=== PATIENT | male | born 1975 | race Caucasian/White ===

== ENCOUNTER 2017-02-23 15:07 | Emergency (ER) | payer MEDICAID ==
[2017-02-23 15:30] VITALS: BP 123/78; PULSE 95; RESP 18; TEMP 212.9; O2SAT 96
[2017-02-23] MEDS ORDERED: IBUPROFEN 800 MG TAB PO ONE (15:32)
--- NOTE | 2017-02-23 15:32 | UCPHY ---
H & P Patient Type: New Chief Complaint Nursing Narrative: c/o SOB/Cough/Congestion since early this am HPI/ROS: HPI CHIEF COMPLAINT: Cough, congestion HISTORY OF PRESENT ILLNESS: This patient very pleasant 41-year-old male significant past medical history for depression anxiety, presents to the urgent care with 1-2 days of cough, congestion, whitish sputum. Low-grade fever. States that he soaked through the sheets this morning. Denies chest pain, denies pleuritic pain, denies hemoptysis, denies abdominal pain or diarrhea. Past Medical History: Anxiety, depression Past Surgical History: No recent surgical history Social History: denies daily use of drugs alcohol tobacco products Family History: Noncontributory ROS REVIEW OF SYSTEMS: A comprehensive 10 point review of systems is otherwise negative aside from elements mentioned in the history of present illness. Exam Constitutional appears well, fever noted 100.5 at triage, triage nursing summary reviewed, vital signs reviewed, awake/alert. Eyes normal conjunctivae and sclera, EOMI, PERRLA. HENT normal inspection, atraumatic, moist mucus membranes, no epistaxis, neck supple/ no meningismus, no raccoon eyes. Respiratory bronchitic sounding breath sounds, no respiratory distress, no wheezing. Cardiovascular rate normal, regular rhythm, no murmur, no edema, distal pulses normal. Gastrointestinal soft, non-tender, no rebound, no guarding, normal bowel sounds, no distension, no pulsatile mass. Genitourinary no CVA tenderness. Musculoskeletal no midline vertebral tenderness, full range of motion, no calf swelling, no tenderness of extremities, no meningismus, good pulses, neurovascularly intact. Skin pink, warm, & dry, no rash, skin atraumatic. Neurologic awake, alert and oriented x 3, AAOx3, moves all 4 extremities equally, motor intact, sensory intact, CN II-XII intact, normal cerebellar, normal vision, normal speech. Psychiatric normal mood/affect. Heme/Lymph/Immune no lymphadenopathy. Differential Diagnosis: Includes but is not limited to in a particular order, viral syndrome, upper respiratory tract infection, pneumonia, viral pneumonia Medical Decision Making: Plan for this patient DuoNeb breathing treatment, two view chest x-ray, rule out Focal Pna. Re-evaluation: After further discussion with the patient has declined x-ray imaging. Would like prescriptions for azithromycin, prednisone, albuterol inhaler, albuterol neb. Cough medicine. I did explain without an x-ray cannot focally visualize that he does not bacterial pneumonia I do recommend we image him however he states that he gets worse he will come back. Patient also refused nebulizer treatment. Source: Patient - Personal History Current Tetanus Diphtheria and Acellular Pertussis (TDAP): Yes - Medical/Surgical History Hx Asthma: Yes Other PMH: denies - Family History Significant Family History: No pertinent family hx - Social History Smoking Status: Light smoker Constitutional: Initial Vital Signs Temperature (C) 100.5 C H 02/23/17 15:27 Heart Rate 95 02/23/17 15:27 Respiratory Rate 18 02/23/17 15:27 Blood Pressure 123/78 H 02/23/17 15:27 O2 Sat (%) 96 02/23/17 15:27 O2 Delivery Mode Room Air Allergies/Adverse Reactions: No Known Allergies Allergy (Unverified 02/23/17 15:27) Home Medications: Medication Instructions Recorded AZITHROMYCIN [Z-PACK] 250 mg PO DAILY #6 tab 02/23/17 Albuterol Sulfate [ALBUTEROL 0.63 mg IH BID #20 vial.neb 02/23/17 SULFATE] Albuterol [Proventil Inhaler HFA 1 - 2 puffs IH Q4H #1 mdi 02/23/17 (*)] Guaifenesin [Guaifenesin ER] 600 mg PO BID #14 tab.er.12h 02/23/17 Hydrocodone/APAP 5/325 [Havana 1 - 2 tab PO Q4H PRN #10 tab 02/23/17 5/325] Ibuprofen [Motrin (*)] 800 mg PO Q6-8PRN #7 tab 02/23/17 Prozac 10 MG (*) 02/23/17 Valium 02/23/17 Wellbutrin Sr 02/23/17 predniSONE 60 mg PO DAILY #15 tab 02/23/17 Departure - Departure Disposition: Home, Routine, Self-Care Clinical Impression: Bronchitis Condition: Good Instructions: Acute Bronchitis (ED) Additional Instructions: 1. Drink lots of fluids stay well-hydrated. 2. Return to the urgent care if you have worsening symptoms questions or concerns. 3. Take your medications as prescribed. Prescriptions: Albuterol [Proventil Inhaler HFA (*)] 1 - 2 puffs IH Q4H #1 mdi Albuterol Sulfate [ALBUTEROL SULFATE] 0.63 mg IH BID #20 vial.neb AZITHROMYCIN [Z-PACK] 250 mg PO DAILY #6 tab Guaifenesin [Guaifenesin ER] 600 mg PO BID #14 tab.er.12h Hydrocodone/APAP 5/325 [Havana 5/325] 1 - 2 tab PO Q4H PRN #10 tab PRN Reason: Pain, Moderate Ibuprofen [Motrin (*)] 800 mg PO Q6-8PRN #7 tab predniSONE 60 mg PO DAILY #15 tab - PQRS PQRS Measurement: n/a
[2017-02-23] MEDS ORDERED: IPRATROPIUM/ALBUTEROL 3 ML DEYVIAL IH ONE (15:35)
[2017-02-23] MEDS ORDERED: IBUPROFEN 200 MG TAB PO ONE (15:39)
[2017-02-23] MEDS ORDERED: IBUPROFEN 600 MG TAB PO ONE (15:39)
== END 2017-02-23 16:04 | disposition home or self-care (01) ==
LOC: CED 15:07
DX: J20.9 Acute bronchitis, unspecified (principal); F41.9 Anxiety disorder, unspecified; F32.9 Major depressive disorder, single episode, unspecified; Z72.0 Tobacco use
CPT/HCPCS: 99204-PO; G0463-PO

== ENCOUNTER 2018-09-13 14:08 | Emergency (ER) | payer OTHER, MEDICAID ==
[2018-09-13] MEDS ORDERED: chlordiazePOXIDE 25 MG CAP PO ONE (15:25)
[2018-09-13] MEDS ORDERED: CHLORDIAZEPOXIDE 25MG PREPK#6 BTL TAKEHOME ONE (15:25)
--- NOTE | 2018-09-13 15:29 | EDPHY ---
H & P Stated Complaint: ETOH withdrawl Time Seen by Provider: 09/13/18 14:55 HPI/ROS: CHIEF COMPLAINT: Alcohol withdrawal HISTORY OF PRESENT ILLNESS: The patient is a 42-year-old man who is concerned that he is going to withdrawal from alcohol. He states that he has done so in the past and suffered seizures. His last drink of alcohol was about 2 hr ago. His mom brought him here. He also reports history of Valium abuse. His most recent dose of Valium was 4 days ago. No fevers no nausea vomiting no abdominal pain. No diaphoresis. No tremors. No tachycardia. Severity: Moderate Modifying factors: None REVIEW OF SYSTEMS: Constitutional: denies: chills, fever, recent illness, recent injury EENTM: denies: blurred vision, double vision, nose congestion Respiratory: denies: cough, shortness of breath Cardiac: denies: chest pain, irregular heart rate, lightheadedness, palpitations Gastrointestinal/Abdominal: denies: abdominal pain, diarrhea, nausea, vomiting, blood streaked stools Genitourinary: denies: dysuria, frequency, hematuria, pain Musculoskeletal: denies: joint pain, muscle pain Skin: denies: lesions, rash, jaundice, bruising Neurological: denies: headache, numbness, paresthesia, tingling, dizziness, weakness Hematologic/Lymphatic: denies: blood clots, easy bleeding, easy bruising Immunologic/allergic: denies: HIV/AIDS, transplant 10 systems reviewed and negative except as noted EXAM: GENERAL: Well-appearing, well-nourished and in no acute distress. HEAD: Atraumatic, normocephalic. EYES: Pupils equal round and reactive to light, extraocular movements intact, sclera anicteric, conjunctiva are normal. ENT: TMs normal, nares patent, oropharynx clear without exudates. Moist mucous membranes. NECK: Normal range of motion, supple without lymphadenopathy or JVD. LUNGS: Breath sounds clear to auscultation bilaterally and equal. No wheezes rales or rhonchi. HEART: Regular rate and rhythm without murmurs, rubs or gallops. ABDOMEN: Soft, nontender, normoactive bowel sounds. No guarding, no rebound. No masses appreciated. BACK: No CVA tenderness, no spinal tenderness, step-offs or deformities EXTREMITIES: Normal range of motion, no pitting or edema. No clubbing or cyanosis. NEUROLOGICAL: Cranial nerves II through XII grossly intact. Normal speech, normal gait. 5/5 strength, normal movement in all extremities, normal sensation , normal reflexes PSYCH: Normal mood, normal affect. SKIN: Warm, dry, normal turgor, no visible rashes or lesions. Source: Patient, Family - Personal History Current Tetanus/Diphtheria Vaccine: Unsure Current Tetanus Diphtheria and Acellular Pertussis (TDAP): Unsure - Medical/Surgical History Hx Asthma: No Hx Chronic Respiratory Disease: No Hx Diabetes: No Hx Cardiac Disease: No Hx Renal Disease: No Hx Cirrhosis: No Hx Alcoholism: Yes Hx HIV/AIDS: No Hx Splenectomy or Spleen Trauma: No Other PMH: ETOH abuse, L knee surgery, - Family History Significant Family History: No pertinent family hx - Social History Smoking Status: Former smoker Alcohol Use: Heavy Drug Use: Other Constitutional: Initial Vital Signs Temperature (C) 36.7 C 09/13/18 14:19 Heart Rate 87 09/13/18 14:19 Respiratory Rate 20 09/13/18 14:19 Blood Pressure 152/101 H 09/13/18 14:19 O2 Sat (%) 93 09/13/18 14:19 O2 Delivery Mode Room Air Allergies/Adverse Reactions: No Known Allergies Allergy (Unverified 09/13/18 14:18) Home Medications: Medication Instructions Recorded Valium 02/23/17 Wellbutrin Sr 02/23/17 Lunesta 09/13/18 Medical Decision Making ED Course/Re-evaluation: The patient currently is not withdrawing at all. He is likely still slightly intoxicated. He is able to ambulate and answer questions appropriately. I do have concern that he will withdrawal. He does not want to drink again. I will give him a dose of Librium here consented to the [facility] with a take-home. Will ask if they will accept him since he had been taking benzos up until 4 days ago. Differential Diagnosis: Partial list of the Differential diagnosis considered include but were not limited to; alcohol withdrawal, benzodiazepine abuse, intoxication and although unlikely based on the history and physical exam, I also considered infection, head injury, delirium tremens. - Data Points Medications Given: Discontinued Medications Chlordiazepoxide (Librium 25 Mg Prepack#6) 1 btl TAKEBRIGHTON EDNOW ONE Stop: 09/13/18 15:26 Last Admin: 09/13/18 15:40 Dose: 1 btl Chlordiazepoxide HCl (Librium) 50 mg PO EDNOW ONE Stop: 09/13/18 15:26 Last Admin: 09/13/18 15:39 Dose: 50 mg Departure - Departure Disposition: Home, Routine, Self-Care Clinical Impression: Alcohol dependence Qualifiers: Substance use status: unspecified alcohol-induced disorder Qualified Code(s): F10.29 - Alcohol dependence with unspecified alcohol-induced disorder Condition: Fair Instructions: Chlordiazepoxide (By mouth), Alcohol Dependence (ED) Additional Instructions: Go directly to the alcohol recovery [facility] as we discussed. Referrals: [facility] [Outside] - As per Instructions Jose Daniel Cardoso MD [Primary Care Provider] - As per Instructions
[2018-09-13 15:54] VITALS: BP 153/103
== END 2018-09-13 15:54 | disposition home or self-care (01) ==
DX: F10.29 Alcohol dependence with unspecified alcohol-induced disorder (principal); Z87.891 Personal history of nicotine dependence